=== PATIENT | male | born 1960 ===

== ENCOUNTER 2016-08-07 15:26 | Emergency (ER) | payer OTHER ==
[2016-08-07 15:42] VITALS: TEMP 98.2
[2016-08-07] MEDS ORDERED: FLUORESCEIN SODIUM 1 MG STRIP OP ONE (16:13)
[2016-08-07] MEDS ORDERED: ACETAMINOPHEN 500 MG TAB ONE (16:13)
[2016-08-07] MEDS ORDERED: PROPARACAINE 0.5% 15 ML OPHT DROP ONE (16:13)
[2016-08-07] MEDS ORDERED: OFLOXACIN 0.3% SOLN PREPACK OPHT.BTL TAKEHOME ONE (16:32)
--- NOTE | 2016-08-07 16:33 | EDPHY ---
H & P Stated Complaint: R eye "gunky" and painful Time Seen by Provider: 08/07/16 15:52 HPI/ROS: CHIEF COMPLAINT: Right eye erythema drainage HISTORY OF PRESENT ILLNESS: Patient is a 55-year-old man who comes to the emergency department complaining of right eye irritation, itchiness, drainage and mild swelling for the last 3 days. He 1st noticed some mild itching about a week ago. He has not had a fever. He has had yellowish discharge. No sinus congestion. Headaches. No changes in vision. REVIEW OF SYSTEMS: Constitutional: denies: chills, fever, recent illness, recent injury EENTM: See HPI Respiratory: denies: cough, shortness of breath Cardiac: denies: chest pain, irregular heart rate, lightheadedness, palpitations Gastrointestinal/Abdominal: denies: abdominal pain, diarrhea, nausea, vomiting, blood streaked stools Genitourinary: denies: dysuria, frequency, hematuria, pain Musculoskeletal: denies: joint pain, muscle pain Skin: denies: lesions, rash, jaundice, bruising Neurological: denies: headache, numbness, paresthesia, tingling, dizziness, weakness Hematologic/Lymphatic: denies: blood clots, easy bleeding, easy bruising Immunologic/allergic: denies: HIV/AIDS, transplant EXAM: GENERAL: Well-appearing, well-nourished and in no acute distress. HEAD: Atraumatic, normocephalic. EYES: Right-sided conjunctival injection and drainage. Normal vision. No abrasion ENT: TMs normal, nares patent, oropharynx clear without exudates. Moist mucous membranes. NECK: Normal range of motion, supple without lymphadenopathy or JVD. LUNGS: Breath sounds clear to auscultation bilaterally and equal. No wheezes rales or rhonchi. HEART: Regular rate and rhythm without murmurs, rubs or gallops. ABDOMEN: Soft, nontender, normoactive bowel sounds. No guarding, no rebound. No masses appreciated. BACK: No CVA tenderness, no spinal tenderness, step-offs or deformities EXTREMITIES: Normal range of motion, no pitting or edema. No clubbing or cyanosis. NEUROLOGICAL: Cranial nerves II through XII grossly intact. Normal speech, normal gait. 5/5 strength, normal movement in all extremities, normal sensation PSYCH: Normal mood, normal affect. SKIN: Warm, dry, normal turgor, no visible rashes or lesions. Source: Patient Exam Limitations: No limitations - Personal History Current Tetanus/Diphtheria Vaccine: Yes Current Tetanus Diphtheria and Acellular Pertussis (TDAP): Yes - Medical/Surgical History Hx Asthma: No Hx Chronic Respiratory Disease: No Hx Diabetes: No Hx Cardiac Disease: No Hx Renal Disease: No Hx Cirrhosis: No Hx Alcoholism: No Hx HIV/AIDS: No Hx Splenectomy or Spleen Trauma: No Other PMH: HTN, hyperlipidemia, R foot sx, hernia repair - Family History Significant Family History: No pertinent family hx - Social History Smoking Status: Never smoked Alcohol Use: Sober Drug Use: None Constitutional: Initial Vital Signs Temperature (C) 36.8 C 08/07/16 15:41 Heart Rate 71 08/07/16 15:41 Respiratory Rate 18 08/07/16 15:41 Blood Pressure 199/130 H 08/07/16 15:41 O2 Sat (%) 97 08/07/16 15:41 O2 Delivery Mode Room Air Allergies/Adverse Reactions: sulfite Allergy (Verified 08/07/16 15:40) sulfur dioxide Allergy (Verified 08/07/16 15:40) Home Medications: Medication Instructions Recorded Htn Med 08/07/16 Triglycerides 08/07/16 Medical Decision Making ED Course/Re-evaluation: The patient clearly has conjunctivitis of the right eye. I will treat him for bacterial infection. He does not wear contacts or glasses. We discussed treatment and follow-up. He is happy with this plan and declines further workup or testing. Differential Diagnosis: Partial list of the Differential diagnosis considered include but were not limited to; conjunctivitis, foreign body, corneal abrasion and although unlikely based on the history and physical exam, I also considered iritis, ischemia. - Data Points Medications Given: Discontinued Medications Ofloxacin (Ocuflox 0.3% Opht Drops Prepack) 1 btl TAKEHOME EDNOW ONE Stop: 08/07/16 16:33 Last Admin: 08/07/16 16:53 Dose: 1 btl Departure - Departure Disposition: Home, Routine, Self-Care Clinical Impression: Conjunctivitis Qualifiers: Conjunctivitis type: acute Acute conjunctivitis type: bacterial Laterality: right Qualified Code(s): H10.31 - Unspecified acute conjunctivitis, right eye Condition: Fair Instructions: Ofloxacin (Into the eye), Conjunctivitis (ED) Referrals: Fermín Bourne MD [Primary Care Provider] - As per Instructions Abhishek Michelle MD [Medical Doctor] - As per Instructions
[2016-08-07 16:56] VITALS: BP 184/90; PULSE 74; RESP 16; O2SAT 94
== END 2016-08-07 16:56 | disposition home or self-care (01) ==
DX: H10.31 Unspecified acute conjunctivitis, right eye (principal); I10 Essential (primary) hypertension